=== PATIENT | male | born 1950 | race Caucasian/White ===

== ENCOUNTER 2022-02-05 08:33 | Inpatient (IN) | payer MEDICARE ==
[~2022-02-05] VITALS: Ht 177.8 cm; Wt 95.0 kg
[2022-02-05] VITALS (43 sets, daily range): BP systolic 73–128; BP diastolic 38–94
[2022-02-05] MEDS ORDERED: ONDANSETRON HCL INJ 2MG/ML 2ML 2 MG/ML VIAL IV STA (08:39)
[2022-02-05] MEDS ORDERED: Morphine 2mg Syringe 2 MG/ML SYR IV STA (08:39)
[2022-02-05] MEDS ORDERED: ASPIRIN 81 MG CHEW TAB PO STA (08:39)
[2022-02-05] MEDS ORDERED: SODIUM CHLORIDE 0.9% 1000ML 1,000 ML IV STA (08:43)
[2022-02-05] MEDS ORDERED: CLOPIDOGREL BISULFATE 75 MG TAB PO ONE (08:45)
[2022-02-05 08:58] LABS: BASOPHILS % 0.4 % (0.0-1.0); EOSINOPHILS # (AUTO) 0.3 (0.0-0.4); EOSINOPHILS % 2.5 % (0.0-6.0); HEMOGLOBIN 13.5 g/dL (14.0-18.0); LYMPHOCYTES # (AUTO) 3.6 (1.0-3.2); MEAN CORPUSCULAR HEMOGLOBIN 32.9 pg (28-32); MEAN CORPUSCULAR HGB CONC 32.9 g/dL (31-35); MONOCYTES # (AUTO) 0.9 (0.2-0.8); MONOCYTES % 8.8 % (4.4-11.3); NEUTROPHILS # (AUTO) 5.4 (2.1-6.9); NEUTROPHILS % 52.6 % (38.7-80.0); PLATELET COUNT 191 x10e3/uL (140-360); RED CELL DISTRIBUTION WIDTH 12.3 % (11.7-14.4)
[2022-02-05] MEDS ORDERED: Morphine 2mg Syringe 2 MG/ML SYR IV ONE (09:00)
[2022-02-05] MEDS ORDERED: HEPARIN SOD (PORCINE) 1000 UNIT/ML SDV IV ONE (09:00)
[2022-02-05 09:07] LABS: INR 0.89; PROTHROMBIN TIME 12.9 seconds (11.9-14.5)
[2022-02-05 09:09] LABS: PARTIAL THROMBOPLASTIN TIME 18.1 seconds (23.8-35.5)
[2022-02-05 09:17] LABS: ALANINE AMINOTRANSFERASE 28 IU/L (0-55); ALBUMIN 3.7 g/dL (3.5-5.0); ALBUMIN/GLOBULIN RATIO 1.1 (0.8-2.0); ALKALINE PHOSPHATASE 53 IU/L (40-150); ANION GAP 15.2 mmol/L (8-16); BLOOD UREA NITROGEN 22 mg/dL (7-26); BUN/CREATININE RATIO 25 (6-25); CALCIUM 8.4 mg/dL (8.4-10.2); CARBON DIOXIDE 21 mmol/L (22-29); CHLORIDE 109 mmol/L (98-107); CREATINE KINASE 58 IU/L (30-200); CREATININE, SERUM 0.88 mg/dL (0.72-1.25); EST GLOMERULAR FILTRATION RATE 86 ML/MIN (60-); GLUCOSE 139 mg/dL (74-118); POTASSIUM 4.2 mmol/L (3.5-5.1); SODIUM 141 mmol/L (136-145)
[2022-02-05] MEDS ORDERED: HEPARIN SOD (PORCINE) 1000 UNIT/ML 30ML ONE (09:23)
[2022-02-05] MEDS ORDERED: SODIUM CHLORIDE 0.9% 1000ML 1,000 ML ONE (09:24)
[2022-02-05] MEDS ORDERED: LIDOCAINE HCL 2% LOCAL 20 ML VIAL ONE (09:24)
[2022-02-05] MEDS ORDERED: IOPAMIDOL 370 MG/ML 100 ML INFUS..BTL INJ ONE ×3 (09:24→12:18)
[2022-02-05] MEDS ORDERED: HEPARIN SOD/SOD CHLORIDE 2,000 ML ONE (09:24)
[2022-02-05] MEDS ORDERED: VERAPAMIL HCL 2.5 MG/ML 2 ML VIAL ONE (09:25)
[2022-02-05] MEDS ORDERED: NITROGLYCERIN/D5W 200 MCG/ML 250 ML ONE (09:25)
[2022-02-05] MEDS ORDERED: MIDAZOLAM HCL 2 MG/2 ML VIAL ONE ×4 (09:26→11:28)
[2022-02-05] MEDS ORDERED: FENTANYL CITRATE/PF 100MCG/2 ML INJ ONE ×2 (09:27→10:41)
[2022-02-05] MEDS ORDERED: EPTIFIBATIDE 75mg 100ML 100 ML ONE (09:56)
[2022-02-05] MEDS ORDERED: EPTIFIBATIDE 20 ML ONE (09:56)
[2022-02-05] MEDS ORDERED: HEPARIN SOD/SOD CHLORIDE 1,000 ML ONE ×3 (10:11→12:20)
[2022-02-05] MEDS ORDERED: ADENOSINE 6MG/2ML 1 ML ONE ×2 (10:13→11:25)
[2022-02-05] MEDS ORDERED: SODIUM CHLORIDE 0.9% 250ML 250 ML ONE (10:14)
[2022-02-05] MEDS ORDERED: DIPHENHYDRAMINE HCL INJ 50 MG/ML VIAL ONE (10:18)
[2022-02-05] MEDS ORDERED: AMIODARONE HCL 100 ML IV ONE (10:23)
[2022-02-05] MEDS ORDERED: Morphine 4mg Syringe 4 MG/ML INJ ONE ×2 (10:31→11:27)
[2022-02-05] MEDS ORDERED: PHENYLEPHRINE HCL 1% 10 MG/ML VIAL ONE (11:11)
[2022-02-05] MEDS ORDERED: SODIUM CHLORIDE 0.9% 100 ML ONE (11:11)
[2022-02-05] MEDS ORDERED: ATROPINE SULFATE 0.1 MG/ML 10ML SYR ONE (12:18)
[2022-02-05] MEDS ORDERED: TIZANIDINE HCL4 MG PO (14:09)
[2022-02-05] MEDS ORDERED: HYDROCODON-ACE1 EA15 PO (14:09)
[2022-02-05] MEDS: Morphine 4mg Syringe 4 MG/ML INJ IV PRN ×3 (14:50→22:52)
[2022-02-05] MEDS: EPTIFIBATIDE 75mg 100ML 100 ML IV SCH ×2 (15:00→20:08)
[2022-02-05] MEDS: TIZANIDINE HCL 4 MG TAB PO SCH (21:10)
[2022-02-05] MEDS: HYDROCODONE/APAP 7.5MG-325MG 1 EA TAB PO PRN (21:48)
[2022-02-06] VITALS (13 sets, daily range): BP systolic 108–159; BP diastolic 59–81
[2022-02-06] MEDS ORDERED: Morphine 4mg Syringe 4 MG/ML INJ IV ONE (00:15)
[2022-02-06] MEDS: EPTIFIBATIDE 75mg 100ML 100 ML IV SCH (01:23)
[2022-02-06] MEDS: HYDROCODONE/APAP 7.5MG-325MG 1 EA TAB PO PRN ×3 (02:57→15:35)
[2022-02-06] MEDS: Morphine 4mg Syringe 4 MG/ML INJ IV PRN ×4 (04:40→19:47)
[2022-02-06 05:31] LABS: BASOPHILS % 0.2 % (0.0-1.0); EOSINOPHILS % 0.3 % (0.0-6.0); HEMATOCRIT 36.2 % (38.2-49.6); HEMOGLOBIN 11.8 g/dL (14.0-18.0); LYMPHOCYTES # (AUTO) 1.6 (1.0-3.2); LYMPHOCYTES % 12.6 % (18.0-39.1); MEAN CORPUSCULAR HEMOGLOBIN 32.4 pg (28-32); MEAN CORPUSCULAR HGB CONC 32.6 g/dL (31-35); MEAN CORPUSCULAR VOLUME 99.5 fL (81-99); MONOCYTES # (AUTO) 1.1 (0.2-0.8); MONOCYTES % 8.5 % (4.4-11.3); NEUTROPHILS # (AUTO) 10.1 (2.1-6.9); NEUTROPHILS % 77.8 % (38.7-80.0); PLATELET COUNT 195 x10e3/uL (140-360); RED BLOOD COUNT 3.64 x10e6/uL (4.3-5.7); RED CELL DISTRIBUTION WIDTH 12.2 % (11.7-14.4)
[2022-02-06 06:00] LABS: ALBUMIN 3.4 g/dL (3.5-5.0); ALBUMIN/GLOBULIN RATIO 1.2 (0.8-2.0); ANION GAP 14.8 mmol/L (8-16); CALCIUM 8.1 mg/dL (8.4-10.2); CREATININE, SERUM 0.67 mg/dL (0.72-1.25); POTASSIUM 3.8 mmol/L (3.5-5.1)
[2022-02-06 06:30] LABS: CREATINE KINASE MB 188.6 ng/mL (0-5.0)
[2022-02-06] MEDS: ASPIRIN 81 MG CHEW TAB PO SCH (08:15)
[2022-02-06] MEDS: CLOPIDOGREL BISULFATE 75 MG TAB PO SCH (08:15)
[2022-02-06 15:48] LABS: CREATINE KINASE MB 247.3 ng/mL (0-5.0)
[2022-02-06] MEDS: TIZANIDINE HCL 4 MG TAB PO SCH (20:39)
[2022-02-06] MEDS: ATORVASTATIN 40 MG TAB PO SCH (20:39)
[2022-02-07] VITALS (10 sets, daily range): BP systolic 75–129; BP diastolic 51–70
[2022-02-07] MEDS: ZOLPIDEM TARTRATE 5 MG TAB PO PRN ×2 (00:32→20:38)
[2022-02-07] MEDS: Morphine 4mg Syringe 4 MG/ML INJ IV PRN ×4 (00:32→19:24)
[2022-02-07] MEDS: HYDROCODONE/APAP 7.5MG-325MG 1 EA TAB PO PRN ×3 (04:21→16:46)
[2022-02-07 06:03] LABS: BASOPHILS % 0.1 % (0.0-1.0); HEMOGLOBIN 9.8 g/dL (14.0-18.0); LYMPHOCYTES # (AUTO) 1.1 (1.0-3.2); LYMPHOCYTES % 8.1 % (18.0-39.1); MEAN CORPUSCULAR HEMOGLOBIN 32.5 pg (28-32); MEAN CORPUSCULAR HGB CONC 32.7 g/dL (31-35); MEAN CORPUSCULAR VOLUME 99.3 fL (81-99); MONOCYTES # (AUTO) 1.4 (0.2-0.8); MONOCYTES % 9.7 % (4.4-11.3); NEUTROPHILS # (AUTO) 11.3 (2.1-6.9); NEUTROPHILS % 81.5 % (38.7-80.0); PLATELET COUNT 168 x10e3/uL (140-360); RED BLOOD COUNT 3.02 x10e6/uL (4.3-5.7)
[2022-02-07 06:21] LABS: ALBUMIN 2.9 g/dL (3.5-5.0); CREATININE, SERUM 0.76 mg/dL (0.72-1.25)
[2022-02-07] MEDS: CLOPIDOGREL BISULFATE 75 MG TAB PO SCH (08:21)
[2022-02-07] MEDS: ASPIRIN 81 MG CHEW TAB PO SCH (08:21)
[2022-02-07] MEDS: PANTOPRAZOLE SOD 40 MG TABEC PO SCH (11:29)
[2022-02-07] MEDS: BISACODYL 5 MG TAB EC PO SCH (11:29)
[2022-02-07] MEDS ORDERED: NITROGLYCERIN 0.4 MG SUBL SL ONE (11:45)
[2022-02-07] MEDS ORDERED: NITROGLYCERIN 0.4 MG SUBL SL PRN (16:45)
[2022-02-07] MEDS: ATORVASTATIN 40 MG TAB PO SCH (21:23)
[2022-02-07] MEDS: TIZANIDINE HCL 4 MG TAB PO SCH (21:24)
[2022-02-08] MEDS ORDERED: SODIUM CHLORIDE 0.9% 1000ML 500 ML IV ONE (01:45)
[2022-02-08] MEDS: HYDROCODONE/APAP 7.5MG-325MG 1 EA TAB PO PRN ×2 (02:34→19:39)
[2022-02-08 04:00] VITALS: BP 87/65
[2022-02-08] MEDS ORDERED: ACETAMINOPHEN 325 MG TAB PO PRN ×2 (06:00)
[2022-02-08] MEDS: PANTOPRAZOLE SOD 40 MG TABEC PO SCH (07:30)
[2022-02-08 07:53] VITALS: BP 92/55
[2022-02-08 08:00] VITALS: BP 92/55
[2022-02-08] MEDS: CLOPIDOGREL BISULFATE 75 MG TAB PO SCH (09:00)
[2022-02-08] MEDS: ASPIRIN 81 MG CHEW TAB PO SCH (09:00)
[2022-02-08] MEDS: BISACODYL 5 MG TAB EC PO SCH (09:00)
[2022-02-08 09:51] LABS: BASOPHILS % 0.1 % (0.0-1.0); EOSINOPHILS % 0.1 % (0.0-6.0); HEMATOCRIT 28.3 % (38.2-49.6); HEMOGLOBIN 9.1 g/dL (14.0-18.0); LYMPHOCYTES # (AUTO) 1.3 (1.0-3.2); LYMPHOCYTES % 9.5 % (18.0-39.1); MEAN CORPUSCULAR HEMOGLOBIN 32.2 pg (28-32); MEAN CORPUSCULAR HGB CONC 32.2 g/dL (31-35); MONOCYTES # (AUTO) 0.9 (0.2-0.8); MONOCYTES % 6.5 % (4.4-11.3); NEUTROPHILS # (AUTO) 11.6 (2.1-6.9); NEUTROPHILS % 83.2 % (38.7-80.0); PLATELET COUNT 164 x10e3/uL (140-360); RED BLOOD COUNT 2.83 x10e6/uL (4.3-5.7); RED CELL DISTRIBUTION WIDTH 12.1 % (11.7-14.4)
[2022-02-08 10:14] LABS: ANION GAP 13.8 mmol/L (8-16); CALCIUM 7.8 mg/dL (8.4-10.2); CREATININE, SERUM 1.71 mg/dL (0.72-1.25); POTASSIUM 3.8 mmol/L (3.5-5.1)
[2022-02-08 10:22] LABS: % IRON SATURATION 4 % (15-50); IRON 10 ug/dL (65-175); TOTAL IRON BINDING CAPACITY 258 ug/dL (261-478); TRANSFERRIN 184 mg/dL (174-364)
[2022-02-08 11:50] VITALS: BP 91/52
[2022-02-08] MEDS ORDERED: IRON SUCROSE 100 MG in SODIUM CHLORIDE 0.9% 100 ML 100 ML IV SCH (12:00)
[2022-02-08] MEDS: SODIUM CHLORIDE 0.9% 1000ML 1,000 ML IV SCH (12:30)
[2022-02-08] MEDS: CALCIUM CARBONATE 500 MG CHEWABLE TABS PO SCH (12:45)
[2022-02-08] MEDS: TIZANIDINE HCL 4 MG TAB PO SCH (20:09)
[2022-02-08] MEDS: ATORVASTATIN 40 MG TAB PO SCH (20:09)
[2022-02-08 20:14] VITALS: BP 104/60
[2022-02-08 20:26] VITALS: BP 95/55
[2022-02-08] MEDS: ZOLPIDEM TARTRATE 5 MG TAB PO PRN (22:27)
[2022-02-09] MEDS: SODIUM CHLORIDE 0.9% 1000ML 1,000 ML IV SCH (00:03)
[2022-02-09 00:39] VITALS: BP 90/52
[2022-02-09 04:49] VITALS: BP 98/53
[2022-02-09 06:01] LABS: BASOPHILS % 0.1 % (0.0-1.0); EOSINOPHILS # (AUTO) 0.1 (0.0-0.4); EOSINOPHILS % 0.7 % (0.0-6.0); HEMATOCRIT 26.5 % (38.2-49.6); HEMOGLOBIN 8.7 g/dL (14.0-18.0); LYMPHOCYTES # (AUTO) 1.4 (1.0-3.2); MEAN CORPUSCULAR HEMOGLOBIN 32.5 pg (28-32); MEAN CORPUSCULAR HGB CONC 32.8 g/dL (31-35); MEAN CORPUSCULAR VOLUME 98.9 fL (81-99); MONOCYTES # (AUTO) 1.4 (0.2-0.8); MONOCYTES % 9.7 % (4.4-11.3); NEUTROPHILS # (AUTO) 11.2 (2.1-6.9); NEUTROPHILS % 78.7 % (38.7-80.0); PLATELET COUNT 174 x10e3/uL (140-360); RED BLOOD COUNT 2.68 x10e6/uL (4.3-5.7); RED CELL DISTRIBUTION WIDTH 12.3 % (11.7-14.4)
[2022-02-09 06:26] LABS: ALBUMIN 2.4 g/dL (3.5-5.0); ALBUMIN/GLOBULIN RATIO 0.6 (0.8-2.0); ANION GAP 15.9 mmol/L (8-16); CALCIUM 7.8 mg/dL (8.4-10.2); CREATININE, SERUM 2.01 mg/dL (0.72-1.25); POTASSIUM 3.9 mmol/L (3.5-5.1)
[2022-02-09] MEDS ORDERED: PLAVIX75 MG PO (07:02)
[2022-02-09] MEDS ORDERED: ASPIRIN CHEW81 MG PO (07:02)
[2022-02-09] MEDS ORDERED: METOPROLOL TART25 MG PO (07:03)
[2022-02-09] MEDS ORDERED: LIPITOR20 MG PO (07:03)
[2022-02-09] MEDS: PANTOPRAZOLE SOD 40 MG TABEC PO SCH (07:30)
[2022-02-09 08:00] VITALS: BP_SYST 95; BP_SYST 97; BP_DIAS 52; BP_DIAS 82
[2022-02-09] MEDS: CLOPIDOGREL BISULFATE 75 MG TAB PO SCH (09:00)
[2022-02-09] MEDS: BISACODYL 5 MG TAB EC PO SCH (09:00)
[2022-02-09] MEDS: CALCIUM CARBONATE 500 MG CHEWABLE TABS PO SCH (09:00)
[2022-02-09] MEDS: ASPIRIN 81 MG CHEW TAB PO SCH (09:00)
== END 2022-02-09 10:35 | disposition home or self-care (01) | DRG 246 ==
LOC: ER 08:40 → CATH LAB V 08:58 → ICU 13:07 → MED/SURG3 02-06 09:48
PROVIDERS: ADMIT Internal Medicine; ATTEND Internal Medicine
PROC: 027037Z Dilation of Coronary Artery, One Artery with Four or More Drug-eluting Intraluminal Devices, Percutaneous Approach (ICD-10-PCS; principal; 2022-02-05)
PROC: 02C03ZZ Extirpation of Matter from Coronary Artery, One Artery, Percutaneous Approach (ICD-10-PCS; 2022-02-05)
PROC: 4A023N7 Measurement of Cardiac Sampling and Pressure, Left Heart, Percutaneous Approach (ICD-10-PCS; 2022-02-05)
PROC: B2111ZZ Fluoroscopy of Multiple Coronary Arteries using Low Osmolar Contrast (ICD-10-PCS; 2022-02-05)
DX: I21.19 ST elevation (STEMI) myocardial infarction involving other coronary artery of inferior wall (principal); N20.1 Calculus of ureter; E78.5 Hyperlipidemia, unspecified; D50.9 Iron deficiency anemia, unspecified; N28.9 Disorder of kidney and ureter, unspecified; I25.110 Atherosclerotic heart disease of native coronary artery with unstable angina pectoris; I25.84 Coronary atherosclerosis due to calcified coronary lesion; K21.9 Gastro-esophageal reflux disease without esophagitis; C61 Malignant neoplasm of prostate; Z20.822 Contact with and (suspected) exposure to COVID-19; E66.9 Obesity, unspecified; Z68.30 Body mass index [BMI] 30.0-30.9, adult
CPT/HCPCS: 33210; 36415; 71045; 80048; 80053; 80061; 82550; 82553; 83540; 83735; 83880; 84466; 84484; 85025; 85610; 85730; 87040; 92920; 92928; 92973; 93005; 93306; 93458; 94799; 99152; 99153; 99285; C1725; C1757; C1766; C1769; C1874; C1887; J0153; J1200; J1327; J1644; J1756; J2001; J2250; J2270; J2370; J2405; J3010; J7030; J7050; Q9967; U0002